=== PATIENT | male | born 1985 | race Caucasian/White ===

== ENCOUNTER 2016-06-15 20:51 | Emergency (ER) | payer OTHER ==
[2016-06-15 21:04] VITALS: TEMP 97.5
[2016-06-15] MEDS ORDERED: diphenhydrAMINE 50 MG/ML 1 ML VIAL IVP STA (21:47)
[2016-06-15] MEDS ORDERED: SODIUM CHLORIDE 0.9% 1,000 ML IV STA (21:47)
[2016-06-15] MEDS ORDERED: METOCLOPRAMIDE 5 MG/ML 2 ML VIAL IVP STA (21:47)
[2016-06-15] MEDS ORDERED: KETOROLAC 30 MG/ML 1 ML VIAL IVP STA (21:47)
--- NOTE | 2016-06-15 22:36 | ED ---
Headache HPI - General Chief Complaint: Headache Stated Complaint: Migraine Time Seen by Provider: 06/15/16 21:40 Source: RN notes reviewed Mode of arrival: ambulatory - History of Present Illness Initial Comments: 30-year-old male presents emergency Department chief complaint of migraine. Patient has a history of migraines. Patient has been experiencing these migraines about 2-3 months now. Patient seen his doctor for them and he's had an MRI. Patient states he has migraine return. Patient states typical migraine. Any other health problems. Patient states that he just cannot get the migraines only. Home. Patient has not seen a neurologist for his headaches. Patient states that like his typical headache. Patient states the throbbing and continuous. Patient states sometimes he does not need to light and nausea with them. Patient denies any recent fever, chills, shortness of breath, chest pain, back pain, abdominal pain, nausea vomiting, numbness or tingling, dysuria or hematuria, constipation or diarrhea, visual changes, or any other current symptoms. - Related Data Allergies Allergy/AdvReac Type Severity Reaction Status Date / Time No Known Allergies Allergy Verified 06/15/16 21:04 Review of Systems ROS Statement: Those systems with pertinent positive or pertinent negative responses have been documented in the HPI. ROS Other: All systems not noted in ROS Statement are negative. Past Medical History Additional Past Medical History / Comment(s): migraines History of Any Multi-Drug Resistant Organisms: None Reported Additional Past Surgical History / Comment(s): hernia x 3, left eye Past Psychological History: No Psychological Hx Reported Smoking Status: Never smoker Past Alcohol Use History: None Reported Past Drug Use History: None Reported General Exam - General Exam Comments Initial Comments: General: The patient is awake and alert, in no distress, and does not appear acutely ill. Eye: Pupils are equal, round and reactive to light, extra-ocular movements are intact; there is normal conjunctiva bilaterally. No signs of icterus. Ears, nose, mouth and throat: There are moist mucous membranes. Neck: The neck is supple, there is no tenderness. Cardiovascular: There is a regular rate and rhythm. No murmur, rub or gallop is appreciated. Respiratory: Lungs are clear to auscultation, respirations are non-labored, breath sounds are equal. No wheezes, stridor, rales, or rhonchi. Gastrointestinal: Soft, non-distended, non-tender abdomen without masses or organomegaly noted. There is no rebound or guarding present. No CVA tenderness. Bowel sounds are unremarkable. Back: There is no tenderness to palpation in the midline. There is no obvious deformity. No rashes noted. Musculoskeletal: Normal ROM, no tenderness, There is no pedal edema. There is no calf tenderness or swelling. Sensation intact. Pulses equal bilaterally 2+. Neurological: CN II-XII intact, There are no obvious motor or sensory deficits. Coordination appears grossly intact. Speech is normal. Skin: Skin is warm and dry and no rashes or lesions are noted. Psychiatric: Cooperative, appropriate mood & affect, normal judgment. Course Vital Signs 06/15/16 21:01 Temperature 97.5 F L Pulse Rate 89 Respiratory 18 Rate Blood Pressure 141/74 O2 Sat by Pulse 98 Oximetry - Reevaluation(s) Reevaluation #1: 06/15/16 22:44 At this time the patient is in the room sleeping. Patient appears to be feeling better. Medical Decision Making - Medical Decision Making 30-year-old male presents emergency Department chief complaint migraine. Patient's history of migraines that have a negative MRI. At this time is not like his normal migraine. "A headache Is Feeling Better. We Discussed Follow- Up with Neurology Is Given On-Call Neurology Information. Discussed Return Parameters. He Stated He Understood. Patient will be discharged home. Disposition Clinical Impression: Migraine Disposition: HOME SELF-CARE Condition: Stable Instructions: Acute Headache (ED) Additional Instructions: Please use medication as discussed. Please follow up with family doctor if symptoms have not improved over the next two days. Please return to the emergency room if your symptoms increase or worsen or for any other concerns. Referrals: Kehinde Encinas DO [Primary Care Provider] - 1-2 days Shandra Harman MD [STAFF PHYSICIAN] - 1-2 days Time of Disposition: 22:44
[2016-06-15 22:57] VITALS: BP 130/73; PULSE 96; RESP 16
== END 2016-06-15 22:56 | disposition home or self-care (01) ==
LOC: EC 20:51
DX: G43.909 Migraine, unspecified, not intractable, without status migrainosus (principal)
CPT/HCPCS: 99283; 96374; 96375 ×2; 96361; J1200; J2765; J1885

== ENCOUNTER → 2022-12-12 | Outpatient (CLI) | payer BC ==
--- NOTE | 2022-12-12 15:05 | P.SLEEP ---
History of Present Illness DATE: 12/12/2022 CONSULTATION/NEW PATIENT EVALUATION HISTORY OF PRESENT ILLNESS/SLEEP-WAKE EVALUATION: 37 year old gentleman had been evaluated in the sleep center for possible obstructive sleep apnea hypopnea syndrome. SLEEP SCHEDULE: Usually sleep schedule from 1112 PM until 67 AM 7 days a week. FALLING ASLEEP: No problems with falling asleep. DURING SLEEP: According to patient's he has loud snoring and witnessed episodes of stop breathing during the sleep. Patient wakes up from sleep more than 2 times with 2 episodes of nocturia. No history of hypnogogical hallucinations, sleep paralysis, or cataplexy. DURING THE DAY/WAKE STATE: In the morning patient wake up tired, falling asleep during the day, positive history of irritability.. Gaylord sleepiness scale is significantly increased to 14. Patient takes 1 nap around 2 PM. PAST MEDICAL HISTORY: Diabetes mellitus, acid reflux, sinusitis problems, hyperlipidemia. PAST SURGICAL HISTORY: Hernia repair 3, right eye surgery. MEDICATIONS: Atorvastatin 10 mg once a day, omeprazole 20 mg twice a day, metformin 500 mg twice a day, Trulicity. SOCIAL HISTORY: Negative for smoking, no alcohol consumption. FAMILY HISTORY: Heart problems, sleep apnea, diabetes. REVIEW OF SYSTEMS: Loud snoring, multiple awakenings from sleep, sleepiness duri ng the day. No fevers. No double vision. No recent chest pain. No shortness of breath. No abdominal pain. No bleeding episodes. No blood in urine. No seizure episodes. PHYSICAL EXAMINATION: GENERAL: A pleasant patient without any distress. VITAL SIGNS: BP 114/81 , HR 100 , RR 18 , weight 296.2 pounds, height 6 foot 2 inches, body mass index 38.0 . HEENT: PERRLA, EOMI. Evaluation of oropharynx showed tongue protrudes midline, low position of soft palate Mallampati 3. NECK: Supple. No JVD. Thyroid is not palpable. 21 inches in circumference. LUNGS: Clear to percussion and to auscultation. Good air exchange. No wheezing or rhonchi. HEART: S1, S2 regular. No murmurs, gallops or rubs. ABDOMEN: Soft and nontender. Bowel sounds are present. No organomegaly appreciated. EXTREMITIES: No clubbing or cyanosis. 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 Cranial nerves 2 to 7 intact. There is no fasciculation or atrophy noted. No focal deficits observed. ASSESSMENT: 1. Loud snoring, witnessed episodes of stop breathing during the sleep, multiple awakenings from sleep with nocturia, low position of soft palate Mallampati 3, wide neck 21 inches in circumference, significant excessive daytime sleepiness with Gaylord Sleepiness Scale 14. Obstructive sleep apnea hypopnea syndrome. 2. Obesity, body mass index 38.0. 3. Diabetes mellitus. 4. Hyperlipidemia. 5 acid reflux. 6 . History of sinuses problems. 7. Status post surgical treatment for hernia repair. PLAN: 1. Home sleep apnea test for evaluation of patient's breathing during sleep. 2. CPAP/BiPAP titration if sleep study confirms obstructive sleep apnea- hypopnea syndrome. 3. Preferable position during sleep on the side. 4. No driving if patient feels any sleepiness. Patient is aware of civil and criminal liability for unsafe driving. 5. Sleep hygiene with regular sleep time for at least 7.5-8 hours. 6. Watching and losing weight. Thank you very much for referring this patient for consultation. Sincerely, Ming Carrillo MD, PhD, FAASM. Diplomat of [place] [employer], Sleep Medicine Board by [place] [employer] [employer] [facility] [place] Past Medical History Past Medical History: Diabetes Mellitus, GERD/Reflux Additional Past Medical History / Comment(s): migraines History of Any Multi-Drug Resistant Organisms: None Reported Additional Past Surgical History / Comment(s): hernia x 3, left eye Past Psychological History: No Psychological Hx Reported Past Alcohol Use History: None Reported Past Drug Use History: None Reported Medications and Allergies Home Medications Medication Instructions Recorded Confirmed Type metFORMIN HCL [Glucophage] 500 mg PO BID 09/23/18 09/23/18 History Allergies Allergy/AdvReac Type Severity Reaction Status Date / Time No Known Allergies Allergy Verified 09/23/18 13:21 Sleep Note - Sleep Note Sleep Note: Temperature: Pulse Rate: Respiratory Rate: Blood Pressure: SpO2: Height: Weight: BMI: Neck Circumference:
== END ==
LOC: 3 N SLEEP 14:25
PROVIDERS: ATTEND Internal Medicine
DX: G47.33 Obstructive sleep apnea (adult) (pediatric) (principal); K21.9 Gastro-esophageal reflux disease without esophagitis; E11.9 Type 2 diabetes mellitus without complications; E66.9 Obesity, unspecified; E78.5 Hyperlipidemia, unspecified; J32.9 Chronic sinusitis, unspecified; Z68.38 Body mass index [BMI] 38.0-38.9, adult; Z99.89 Dependence on other enabling machines and devices; Z98.890 Other specified postprocedural states; Z79.84 Long term (current) use of oral hypoglycemic drugs; Z79.85 Long-term (current) use of injectable non-insulin antidiabetic drugs
CPT/HCPCS: 99211

== ENCOUNTER → 2023-05-09 | Outpatient (CLI) | payer BC ==
--- NOTE | 2023-05-09 16:09 | P.PN ---
Subjective DATE: 05/09/2023 FOLLOW UP VISIT. Patient with obstructive sleep apnea hypopnea syndrome return to sleep center for follow-up visit. Recently patient had sleep study which documented obstructive sleep apnea hypopnea syndrome. Patient was initiated on PAP therapy and today is first visit after treatment was started. Patient was able to use PAP equipment every night for the whole night. The patient does not have significant problems with the mask, PAP pressure and humidification. Ranson sleepiness scale is 6. Patient sleeps better and feels better during the day after starting using CPAP therapy. I checked information from PAP unit. PAP unit pressure maximal inspiratory pressure 17, minimal expiratory pressure 6, pressure-support 4 average pressure 11.3 /7.3 cm H2O. Usage is 90 % for more then 4 hours, average 6.5 hours per night. Leak is 7.7 l/m, which is in acceptable range. Apnea Hypopnea Index is 1.1, which is normal. MEDICATIONS:1. Atorvastatin 10 mg once a day 2. Omeprazole 20 mg twice a day 3. Metformin 500 mg twice a day 4. Trulicity During physical exam: GENERAL: A pleasant patient without any distress. VITAL SIGNS: BP 123/86, HR 95, RR 12, weight 291.8, temperature 97.6, oxygen saturation at room air 97%. HEENT: PERRLA, EOMI.low position of soft palate, Mallapati 3 . NECK: Supple. No JVD. LUNGS: Clear to percussion and to auscultation. Good air exchange. No wheezing or rhonchi. HEART: S1, S2 regular. ABDOMEN: Soft and nontender.[] EXTREMITIES: No clubbing or cyanosis. 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 No focal deficit. Impressions: 1. Obstructive sleep apnea-hypopnea syndrome. Patient demonstrated great compliance with treatment, benefiting from treatment. 2. Obesity. 3. Diabetes mellitus. 4. Acid reflux. 5. Hyperlipidemia. 6. History of sinuses problems. 7. Status post surgical treatment for hernia repair. Plan: 1. Continue using PAP equipment every night for the whole night. 2. To change air filter at least 1-2 times per month. 3. PAP unit should stay lower then position of the head. 4. Advised patient to remove all remaining water from humidifier canister daily and make it dry after each usage. Refill canister with fresh distilled water before each usage. 5. Sleep hygiene with regular time in bed for at least 8 hours. 6. Precautions related to driving. No driving if feel any sleepiness. 7. I will maintain prescription for PAP supplies including mask, tube, filters. 8. Follow up visit in 6 months or earlier if patient has any problems. 9. Watching and losing weight. Thank you very much for allowing me to participate in the management of your patient. Ming Carrillo MD, PhD, FAASM. Diplomat of [place] [employer], Sleep Medicine Board by [place] [employer] [facility] [place]
== END ==
LOC: 3 N SLEEP 15:17
PROVIDERS: ATTEND Internal Medicine
DX: G47.33 Obstructive sleep apnea (adult) (pediatric) (principal); E11.9 Type 2 diabetes mellitus without complications; E66.9 Obesity, unspecified; E78.5 Hyperlipidemia, unspecified; K21.9 Gastro-esophageal reflux disease without esophagitis; Z79.84 Long term (current) use of oral hypoglycemic drugs; Z79.85 Long-term (current) use of injectable non-insulin antidiabetic drugs; Z98.890 Other specified postprocedural states; Z86.69 Personal history of other diseases of the nervous system and sense organs; Z99.89 Dependence on other enabling machines and devices
CPT/HCPCS: 99212

== ENCOUNTER 2023-07-08 01:27 | Observation (INO) | payer BC ==
[2023-07-08] MEDS ORDERED: SODIUM CHLORIDE 0.9% 2,000 ML IV STA (02:02)
[2023-07-08] MEDS ORDERED: ACETAMINOPHEN TAB 500 MG TAB PO STA (02:32)
[2023-07-08 02:49] LABS: Chloride 107 mmol/L (98-107); Sodium 135 mmol/L (137-145)
--- NOTE | 2023-07-08 03:03 | ED ---
General Adult HPI - General Source: patient Mode of arrival: ambulatory Limitations: no limitations <Benja Kemp - Last Filed: 07/08/23 19:23> <Sarah Palacios P - Last Filed: 07/08/23 22:06> - General Chief complaint: Nausea/Vomiting/Diarrhea Stated complaint: Heart racing lightheaded, weak, diarrhea Time Seen by Provider: 07/08/23 02:01 - History of Present Illness Initial comments: 37-year-old male presenting to the ED with a chief complaint of nausea and vomiting. Patient states last night he was watching football and he was alerted that his heart was racing by his Apple Watch at around 120 bpm. Patient also noted some shortness of breath and some lightheadedness of this however patient states that he attributed this to the excitement of the football game. Shortly after, states he started to experience some nausea and vomiting. Reports that the nausea and vomiting has been continuous until today as well. Also notes that he is also having these intermittent episodes of palpitations and shortness of breath seemingly at random with no arousal. Denies chest pain with this. Denies abdominal pain. Denies changes in bowel or bladder habits. No other complaints. (Benja Kemp) - Related Data Home Medications Medication Instructions Recorded Confirmed metFORMIN HCL [Glucophage] 1,000 mg PO BID-W/MEALS 09/23/18 07/08/23 Atorvastatin [Lipitor] 10 mg PO HS 07/08/23 07/08/23 Omeprazole [PriLOSEC] 40 mg PO BID 07/08/23 07/08/23 Tirzepatide [Mounjaro] 5 mg SQ HOLLINS 07/08/23 07/08/23 Allergies Allergy/AdvReac Type Severity Reaction Status Date / Time No Known Allergies Allergy Verified 07/08/23 10:53 Review of Systems ROS Other: All systems not noted in ROS Statement are negative. <Benja Kemp - Last Filed: 07/08/23 19:23> ROS Other: All systems not noted in ROS Statement are negative. <Sarah Palacios P - Last Filed: 07/08/23 22:06> ROS Statement: Those systems with pertinent positive or pertinent negative responses have been documented in the HPI. Past Medical History Past Medical History: Diabetes Mellitus, GERD/Reflux, Sleep Apnea/CPAP/BIPAP Additional Past Medical History / Comment(s): migraines History of Any Multi-Drug Resistant Organisms: None Reported Additional Past Surgical History / Comment(s): hernia x 3, left eye Past Psychological History: No Psychological Hx Reported Smoking Status: Never smoker Past Alcohol Use History: Rare Past Drug Use History: None Reported <Benja Kemp - Last Filed: 07/08/23 19:23> General Exam Limitations: no limitations General appearance: alert, in no apparent distress ENT exam: Present: mucous membranes moist Neck exam: Present: normal inspection Respiratory exam: Present: normal lung sounds bilaterally Cardiovascular Exam: Present: regular rate, normal rhythm GI/Abdominal exam: Present: soft (No significant abdominal tenderness to palpation. No rebound guarding or rigidity.) Neurological exam: Present: alert, oriented X3 Skin exam: Present: warm, dry <Benja Kemp Last Filed: 07/08/23 19:23> Course Vital Signs 07/08/23 07/08/23 07/08/23 01:32 02:22 04:28 Temperature 99.4 F 101.6 F H Pulse Rate 144 H 124 H 125 H Pulse Rate [ Right Pulse Oximetery] Respiratory 20 18 18 Rate Blood Pressure 89/62 97/68 96/66 Blood Pressure [Right Arm Supine] O2 Sat by Pulse 100 99 97 Oximetry 07/08/23 07/08/23 07/08/23 06:38 07:43 14:00 Temperature 98.6 F Pulse Rate 114 H 109 H Pulse Rate [ 122 H Right Pulse Oximetery] Respiratory 18 18 18 Rate Blood Pressure 99/60 98/68 Blood Pressure [Right Arm Supine] O2 Sat by Pulse 99 98 Oximetry 07/08/23 07/08/23 07/08/23 15:10 16:08 17:56 Temperature 98.6 F Pulse Rate Pulse Rate [ 117 H 113 H 122 H Right Pulse Oximetery] Respiratory 17 18 Rate Blood Pressure Blood Pressure 101/60 98/54 98/69 [Right Arm Supine] O2 Sat by Pulse 96 97 Oximetry Medical Decision Making - Lab Data Result diagrams: 07/08/23 03:27 07/08/23 02:19 <Benja Kemp - Last Filed: 07/08/23 19:23> - Lab Data Result diagrams: 07/08/23 03:27 07/08/23 02:19 <Sarah Palacios P - Last Filed: 07/08/23 22:06> - Medical Decision Making Was pt. sent in by a medical professional or institution (TONNY Bergman, SHIRRING MACHINE OPERATOR, urgent care, hospital, or long term...) When possible be specific @ -No Did you speak to anyone other than the patient for history (EMS, parent, family, police, friend...)? What history was obtained from this source @ -No Did you review nursing and triage notes (agree or disagree)? Why? @ -I reviewed and agree with nursing and triage notes Were old charts reviewed (outside hosp., previous admission, EMS record, old EKG, old radiological studies, urgent care reports/EKG's, long term records)? Report findings @ -No old charts were reviewed Differential Diagnosis (chest pain, altered mental status, abdominal pain women, abdominal pain men, vaginal bleeding, weakness, fever, dyspnea, syncope, headache, dizziness, GI bleed, back pain, seizure, CVA, palpatations, mental health, musculoskeletal)? @ -Differential Fever: Pneumonia, viral URI, endocarditis, myocarditis, pericarditis, otitis, sinusitis, peritonsillar Abscess, retropharyngeal Abscess, epiglottitis, peritonitis, appendicitis, Stacey cystitis, diverticulitis, hepatitis, colitis, UTI, PID, TOA, pyelonephritis, prostatitis, epididymitis, meningitis, encephalitis, pulmonary embolism, CVA, thyroid storm, pancreatitis, adrenal crisis, cavernous sinus thrombosis, this is not meant to be an all-inclusive list. EKG interpreted by me (3pts min.). @ -As above X-rays interpreted by me (1pt min.). @ -Chest x-ray performed and at this time is pending. CT interpreted by me (1pt min.). @ -None done U/S interpreted by me (1pt. min.). @ -None done What testing was considered but not performed or refused? (CT, X-rays, U/S, labs )? Why? @ -None What meds were considered but not given or refused? Why? @ -None Did you discuss the management of the patient with other professionals (professionals i.e. TONNY Bergman, SHIRRING MACHINE OPERATOR, lab, RT, psych nurse, socially responsible investment adviser, health and physical education teacher, teacher, gifts officer, casework supervisor)? Give summary @ -No Was smoking cessation discussed for >3mins.? @ -No Was critical care preformed (if so, how long)? @ -No Were there social determinants of health that impacted care today? How? (Homelessness, low income, unemployed, alcoholism, drug addiction, transportation, low edu. Level, literacy, decrease access to med. care, detention, rehab)? @ -No Was there de-escalation of care discussed even if they declined (Discuss DNR or withdrawal of care, Hospice)? DNR status @ -No What co-morbidities impacted this encounter? (DM, HTN, Smoking, COPD, CAD, Cancer, CVA, ARF, Chemo, Hep., AIDS, mental health diagnosis, sleep apnea, morbid obesity)? @ -None Was patient admitted / discharged? Hospital course, mention meds given and route, prescriptions, significant lab abnormalities, going to OR and other pertinent info. @ -Admission 37-year-old male presenting to the ED with 2-day history of lightheadedness, palpitations, nausea, vomiting, and some intermittent shortness of breath. Laboratory studies at this time significant for a white count of 10.5 neutrophils elevated at 9.3. Chemistry panel largely unremarkable. UA shows no significant evidence of infection. Serology panel notable. Patient will be admitted secondary to gastroenteritis with septic features. Troponin at this t ashutosh unremarkable. Consult placed to cardiology in regards to sinus tachycardia. Undiagnosed new problem with uncertain prognosis? @ -No Drug Therapy requiring intensive monitoring for toxicity (Heparin, Nitro, Insulin, Cardizem)? @ -No Were any procedures done? @ -No Diagnosis/symptom? @ -Gastroenteritis, sepsis, tachycardia Acute, or Chronic, or Acute on Chronic? @ -Acute Uncomplicated (without systemic symptoms) or Complicated (systemic symptoms)? @ -Complicated Side effects of treatment? @ -No Exacerbation, Progression, or Severe Exacerbation? @ -No Poses a threat to life or bodily function? How? (Chest pain, [place], [place], pneumonia, PE, COPD, DKA, ARF, appy, cholecystitis, CVA, Diverticulitis, Homicidal, Suicidal, threat to staff... and all critical care pts) @ -Possibly, sepsis (Benja Kemp) Personally saw and evaluated this patient, after 2 L of fluids and antipyretics patient remains tachycardic and feeling lightheaded. Given the degree of tachycardia to the 170s during rest I do feel this warrants further evaluation by cardiology and patient was agreeable to plan for observation. (Sarah Palacios) - Lab Data Lab Results 07/08/23 07/08/23 07/08/23 Range/Units 02:19 02:19 02:19 WBC (3.8-10.6) k/uL RBC (4.30-5.90) m/uL Hgb (13.0-17.5) gm/dL Hct (39.0-53.0) % MCV (80.0-100.0) fL MCH (25.0-35.0) pg MCHC (31.0-37.0) g/dL RDW (11.5-15.5) % Plt Count (150-450) k/uL MPV Neutrophils % % Lymphocytes % % Monocytes % % Eosinophils % % Basophils % % Neutrophils # (1.3-7.7) k/uL Lymphocytes # (1.0-4.8) k/uL Monocytes # (0-1.0) k/uL Eosinophils # (0-0.7) k/uL Basophils # (0-0.2) k/uL PT (10.0-12.5) sec INR (<1.2) APTT (22.0-30.0) sec D-Dimer (<0.60) mg/L FEU Sodium 135 L (137-145) mmol/L Potassium 4.3 (3.5-5.1) mmol/L Chloride 107 (98-107) mmol/L Carbon Dioxide 16 L (22-30) mmol/L Anion Gap 12 mmol/L BUN 20 (9-20) mg/dL Creatinine 1.17 (0.66-1.25) mg/dL Est GFR (CKD-EPI)AfAm >90 (>60 ml/min/1.73 sqM) Est GFR (CKD-EPI)NonAf 79 (>60 ml/min/1.73 sqM) Glucose 214 H (74-99) mg/dL Calcium 9.5 (8.4-10.2) mg/dL Magnesium (1.6-2.3) mg/dL Total Bilirubin 1.5 H (0.2-1.3) mg/dL AST 32 (17-59) U/L ALT 51 H (4-49) U/L Alkaline Phosphatase 91 (38-126) U/L Troponin I (0.000-0.034) ng/mL Total Protein 7.5 (6.3-8.2) g/dL Albumin 4.8 (3.5-5.0) g/dL Amylase (30-110) U/L Lipase (23-300) U/L TSH (0.465-4.680) mIU/L Urine Color Yellow Urine Appearance Cloudy (Clear) Urine pH 5.5 (5.0-8.0) Ur Specific [place] 1.032 (1.001-1.035) Urine Protein 1+ H (Negative) Urine Glucose (UA) Trace H (Negative) Urine Ketones 1+ H (Negative) Urine Blood Negative (Negative) Urine Nitrite Negative (Negative) Urine Bilirubin Negative (Negative) Urine Urobilinogen <2.0 (<2.0) mg/dL Ur Leukocyte Esterase Negative (Negative) Urine RBC 1 (0-5) /hpf Urine WBC 6 H (0-5) /hpf Hyaline Casts 3 H (0-2) /lpf Urine Mucus Many H (None) /hpf Influenza Type A (PCR) Not Detected (Not Detectd) Influenza Type B (PCR) Not Detected (Not Detectd) RSV (PCR) Not Detected (Not Detectd) SARS-CoV-2 (PCR) Not Detected (Not Detectd) 07/08/23 07/08/23 07/08/23 Range/Units 02:36 02:36 02:36 WBC (3.8-10.6) k/uL RBC (4.30-5.90) m/uL Hgb (13.0-17.5) gm/dL Hct (39.0-53.0) % MCV (80.0-100.0) fL MCH (25.0-35.0) pg MCHC (31.0-37.0) g/dL RDW (11.5-15.5) % Plt Count (150-450) k/uL MPV Neutrophils % % Lymphocytes % % Monocytes % % Eosinophils % % Basophils % % Neutrophils # (1.3-7.7) k/uL Lymphocytes # (1.0-4.8) k/uL Monocytes # (0-1.0) k/uL Eosinophils # (0-0.7) k/uL Basophils # (0-0.2) k/uL PT 11.5 (10.0-12.5) sec INR 1.1 (<1.2) APTT 23.4 (22.0-30.0) sec D-Dimer 0.33 (<0.60) mg/L FEU Sodium (137-145) mmol/L Potassium (3.5-5.1) mmol/L Chloride (98-107) mmol/L Carbon Dioxide (22-30) mmol/L Anion Gap mmol/L BUN (9-20) mg/dL Creatinine (0.66-1.25) mg/dL Est GFR (CKD-EPI)AfAm (>60 ml/min/1.73 sqM) Est GFR (CKD-EPI)NonAf (>60 ml/min/1.73 sqM) Glucose (74-99) mg/dL Calcium (8.4-10.2) mg/dL Magnesium 1.4 L (1.6-2.3) mg/dL Total Bilirubin (0.2-1.3) mg/dL AST (17-59) U/L ALT (4-49) U/L Alkaline Phosphatase (38-126) U/L Troponin I <0.012 (0.000-0.034) ng/mL Total Protein (6.3-8.2) g/dL Albumin (3.5-5.0) g/dL Amylase 45 (30-110) U/L Lipase 96 (23-300) U/L TSH 1.900 (0.465-4.680) mIU/L Urine Color Urine Appearance (Clear) Urine pH (5.0-8.0) Ur Specific [place] (1.001-1.035) Urine Protein (Negative) Urine Glucose (UA) (Negative) Urine Ketones (Negative) Urine Blood (Negative) Urine Nitrite (Negative) Urine Bilirubin (Negative) Urine Urobilinogen (<2.0) mg/dL Ur Leukocyte Esterase (Negative) Urine RBC (0-5) /hpf Urine WBC (0-5) /hpf Hyaline Casts (0-2) /lpf Urine Mucus (None) /hpf Influenza Type A (PCR) (Not Detectd) Influenza Type B (PCR) (Not Detectd) RSV (PCR) (Not Detectd) SARS-CoV-2 (PCR) (Not Detectd) 07/08/23 Range/Units 03:27 WBC 10.5 (3.8-10.6) k/uL RBC 5.17 (4.30-5.90) m/uL Hgb 15.2 (13.0-17.5) gm/dL Hct 45.5 (39.0-53.0) % MCV 88.1 (80.0-100.0) fL MCH 29.4 (25.0-35.0) pg MCHC 33.4 (31.0-37.0) g/dL RDW 14.8 (11.5-15.5) % Plt Count 189 (150-450) k/uL MPV 8.5 Neutrophils % 89 % Lymphocytes % 6 % Monocytes % 4 % Eosinophils % 0 % Basophils % 0 % Neutrophils # 9.3 H (1.3-7.7) k/uL Lymphocytes # 0.6 L (1.0-4.8) k/uL Monocytes # 0.4 (0-1.0) k/uL Eosinophils # 0.0 (0-0.7) k/uL Basophils # 0.0 (0-0.2) k/uL PT (10.0-12.5) sec INR (<1.2) APTT (22.0-30.0) sec D-Dimer (<0.60) mg/L FEU Sodium (137-145) mmol/L Potassium (3.5-5.1) mmol/L Chloride (98-107) mmol/L Carbon Dioxide (22-30) mmol/L Anion Gap mmol/L BUN (9-20) mg/dL Creatinine (0.66-1.25) mg/dL Est GFR (CKD-EPI)AfAm (>60 ml/min/1.73 sqM) Est GFR (CKD-EPI)NonAf (>60 ml/min/1.73 sqM) Glucose (74-99) mg/dL Calcium (8.4-10.2) mg/dL Magnesium (1.6-2.3) mg/dL Total Bilirubin (0.2-1.3) mg/dL AST (17-59) U/L ALT (4-49) U/L Alkaline Phosphatase (38-126) U/L Troponin I (0.000-0.034) ng/mL Total Protein (6.3-8.2) g/dL Albumin (3.5-5.0) g/dL Amylase (30-110) U/L Lipase (23-300) U/L TSH (0.465-4.680) mIU/L Urine Color Urine Appearance (Clear) Urine pH (5.0-8.0) Ur Specific [place] (1.001-1.035) Urine Protein (Negative) Urine Glucose (UA) (Negative) Urine Ketones (Negative) Urine Blood (Negative) Urine Nitrite (Negative) Urine Bilirubin (Negative) Urine Urobilinogen (<2.0) mg/dL Ur Leukocyte Esterase (Negative) Urine RBC (0-5) /hpf Urine WBC (0-5) /hpf Hyaline Casts (0-2) /lpf Urine Mucus (None) /hpf Influenza Type A (PCR) (Not Detectd) Influenza Type B (PCR) (Not Detectd) RSV (PCR) (Not Detectd) SARS-CoV-2 (PCR) (Not Detectd) - EKG Data EKG Comments: EKG interpreted by me showing a sinus tachycardia with nonspecific ST and T wave changes at a rate of 136, CT 137, QRS 90, QT/QTc 303/383. (Benja Kemp) Disposition <Benja Kemp - Last Filed: 07/08/23 19:23> <Sarah Palacios - Last Filed: 07/08/23 22:06> Clinical Impression: Gastroenteritis, Sepsis Disposition: ADMITTED IP TO THIS HOSP
[2023-07-08 03:36] LABS: INR 1.1 (<1.2); Partial Thromboplastin Time 23.4 sec (22.0-30.0); Prothrombin Time 11.5 sec (10.0-12.5)
[2023-07-08 03:51] LABS: Amylase 45 U/L (30-110); Lipase 96 U/L (23-300); Magnesium 1.4 mg/dL (1.6-2.3)
[2023-07-08 03:53] LABS: ALT 51 U/L (4-49); AST 32 U/L (17-59); African American GFR (CKD) >90 (>60 ml/min/1.73 sqM); Albumin 4.8 g/dL (3.5-5.0); Alkaline Phosphatase 91 U/L (38-126); Anion Gap 12 mmol/L; Blood Urea Nitrogen 20 mg/dL (9-20); Calcium 9.5 mg/dL (8.4-10.2); Carbon Dioxide 16 mmol/L (22-30); Glucose 214 mg/dL (74-99); Non-African American GFR(CKD) 79 (>60 ml/min/1.73 sqM); Potassium 4.3 mmol/L (3.5-5.1); Total Bilirubin 1.5 mg/dL (0.2-1.3); Total Protein 7.5 g/dL (6.3-8.2)
[2023-07-08] MEDS: MAGNESIUM SULFATE-D5W PMX 1 GM in DEXTROSE/WATER 1 100ML.BAG IVPB SCH ×2 (05:53→07:35)
[2023-07-08 07:00] LABS: Appearance,Urine Cloudy (Clear); Bilirubin,Urine Negative (Negative); Blood,Urine Negative (Negative); Color,Urine Yellow; Glucose,Urine (UA) Trace (Negative); Hyaline Casts,Urine 3 /lpf (0-2); Ketones,Urine 1+ (Negative); Leukocyte Esterase,Urine Negative (Negative); Mucus,Urine Many /hpf; Nitrite,Urine Negative (Negative); PH, Urine 5.5 (5.0-8.0); Protein,Urine 1+ (Negative); RBC,Urine 1 /hpf (0-5); Specific Gravity,Urine 1.032 (1.001-1.035); Urobilinogen,Urine <2.0 mg/dL (<2.0); WBC,Urine 6 /hpf (0-5)
[2023-07-08 07:22] LABS: Basophils % (A) 0 %; Eosinophils % (A) 0 %; HCT 45.5 % (39.0-53.0); HGB 15.2 gm/dL (13.0-17.5); Lymphocytes # (A) 0.6 k/uL (1.0-4.8); Lymphocytes % (A) 6 %; MCH 29.4 pg (25.0-35.0); MCHC 33.4 g/dL (31.0-37.0); MCV 88.1 fL (80.0-100.0); Mean Platelet Volume 8.5; Monocytes # (A) 0.4 k/uL (0-1.0); Monocytes % (A) 4 %; Neutrophils # (A) 9.3 k/uL (1.3-7.7); Neutrophils % (A) 89 %; Platelet Count 189 k/uL (150-450); RBC 5.17 m/uL (4.30-5.90); RDW 14.8 % (11.5-15.5); WBC 10.5 k/uL (3.8-10.6)
--- NOTE | 2023-07-08 07:29 | XR ---
EXAMINATION TYPE: XR chest 2V DATE OF EXAM: 07/08/2023 COMPARISON: NONE HISTORY: Chest pain TECHNIQUE: Frontal and lateral views of the chest are obtained. FINDINGS: There is no focal air space opacity. No evidence for pneumothorax. No pleural effusion. The cardiac silhouette size is within normal limits. The osseous structures are grossly intact. IMPRESSION: 1. No acute cardiopulmonary process.
[2023-07-08] MEDS ORDERED: NALOXONE 0.4 MG/ML 1 ML VIAL IV PRN (07:51)
[2023-07-08] MEDS ORDERED: ACETAMINOPHEN TAB 325 MG TAB PO PRN (07:51)
[2023-07-08] MEDS ORDERED: SODIUM CHLORIDE 0.9% 1,000 ML IV SCH (08:00)
[2023-07-08] MEDS ORDERED: DEXTROSE 50% SYRINGE 50 ML IVP PRN ×2 (10:48)
--- NOTE | 2023-07-08 11:49 | P.CRDCN ---
History of Present Illness History of present illness: HISTORY OF PRESENT ILLNESS: This is a 37-year-old male with a past medical history significant for diabetes, GERD, hyperlipidemia, and sleep apnea. Patient does not follow with a cardiolo gist. We have been asked to see the patient in consultation for tachycardia. Patient examined at the bedside in the emergency room. Patient states about a week ago he started to feel unwell. He states that he had upper respiratory symptoms. He states those symptoms resolved. However, yesterday, the patient reports having episodes of nausea, vomiting, and diarrhea. He reports a fever. He reports feeling lightheaded as well. He states yesterday when he went to bed his Apple Watch alerted him that he was having episodes of increased heart rate up into the 160s. At the time of examination, the patient's heart rate is sinus mechanism in the 120s. DIAGNOSTICS: - EKG reveals sinus tachycardia with no signs of acute ischemia - Chest xray negative for acute process - Laboratory data: WBC 10.5. Hemoglobin 15.2. Platelet count 189. D-dimer 0.33. Sodium 135. Potassium 4.3. BUN 20. Creatinine 1.17. Magnesium 1.4. Troponin negative x 1. AST 32. ALT 51. Total bilirubin 1.5. TSH 1.90. - Current home cardiac medications include Lipitor 10 mg daily - No previous echocardiogram or cardiac catheterization available in EMR for review REVIEW OF SYSTEMS: At the time of my exam: CONSTITUTIONAL: Denies fever or chills. HEENT: Denies blurred vision, vision changes, or eye pain. Denies hemoptysis CARDIOVASCULAR: Denies chest pain. Denies orthopnea. Denies PND. Denies palpitations RESPIRATORY: Denies shortness of breath. GASTROINTESTINAL: Denies abdominal pain. Denies nausea or vomiting. HEMATOLOGIC: Denies bleeding disorders. GENITOURINARY: Denies any blood in urine. SKIN: Denies pruitis. Denies rash. PHYSICAL EXAM: VITAL SIGNS: Reviewed. GENERAL: Well-developed in no acute distress. HEENT: Head is normocephalic. Pupils are equal, round. Sclerae anicteric. Mucous membranes of the mouth are moist. Neck supple. No JVD or thyromegaly LUNGS: Respirations even and unlabored. Lungs essentially clear to auscultation bilaterally. HEART: Tachycardic. Regular rate and rhythm. S1 and S2 heard. ABDOMEN: Soft. Nondistended. Nontender. EXTREMITIES: Normal range of motion. No clubbing or cyanosis. Peripheral pulses intact. No lower extremity edema NEUROLOGIC: Awake and alert. Oriented x 3. ASSESSMENT: Nausea, vomiting, diarrhea Fever Sinus tachycardia, physiological, secondary to above Recent upper respiratory infection Diabetes Hyperlipidemia History of GERD Hypomagnesemia Mildly elevated bilirubin and ALT PLAN: Obtain 2D echo to assess cardiac structure and function Continue telemetry monitoring No need for beta-rainer therapy at this time. Anticipate improvement of sinus tachycardia with resolution of patient's acute illness Further recommendations pending patient course Nurse practitioner note has been reviewed by physician. Signing provider agrees with the documented findings, assessment, and plan of care documented by SENIOR DIRECTOR MARKETING as a scribe. Past Medical History Past Medical History: Diabetes Mellitus, GERD/Reflux, Sleep Apnea/CPAP/BIPAP Additional Past Medical History / Comment(s): migraines History of Any Multi-Drug Resistant Organisms: None Reported Additional Past Surgical History / Comment(s): hernia x 3, left eye Past Psychological History: No Psychological Hx Reported Smoking Status: Never smoker Past Alcohol Use History: Rare Past Drug Use History: None Reported Medications and Allergies Home Medications Medication Instructions Recorded Confirmed Type metFORMIN HCL [Glucophage] 1,000 mg PO BID-W/MEALS 09/23/18 07/08/23 History Atorvastatin [Lipitor] 10 mg PO HS 07/08/23 07/08/23 History Omeprazole [PriLOSEC] 40 mg PO BID 07/08/23 07/08/23 History Tirzepatide [Mounjaro] 5 mg SQ HOLLINS 07/08/23 07/08/23 History Allergies Allergy/AdvReac Type Severity Reaction Status Date / Time No Known Allergies Allergy Verified 07/08/23 10:53 Physical Exam Vitals: Vital Signs Temp Pulse Resp BP Pulse Ox 07/08/23 07:43 109 H 18 98/68 98 07/08/23 06:38 98.6 F 114 H 18 99/60 99 07/08/23 04:28 125 H 18 96/66 97 07/08/23 02:22 101.6 F H 124 H 18 97/68 99 07/08/23 01:32 99.4 F 144 H 20 89/62 100 Intake and Output 07/07/23 07/08/23 07/08/23 22:59 06:59 14:59 Other: Weight 127.006 kg Results 07/08/23 03:27 07/08/23 02:19 Cardiac Enzymes 07/08/23 07/08/23 Range/Units 02:19 02:36 AST 32 (17-59) U/L Troponin I <0.012 (0.000-0.034) ng/mL Coagulation 07/08/23 Range/Units 02:36 PT 11.5 (10.0-12.5) sec APTT 23.4 (22.0-30.0) sec CBC 07/08/23 Range/Units 03:27 WBC 10.5 (3.8-10.6) k/uL RBC 5.17 (4.30-5.90) m/uL Hgb 15.2 (13.0-17.5) gm/dL Hct 45.5 (39.0-53.0) % Plt Count 189 (150-450) k/uL Comprehensive Metabolic Panel 07/08/23 Range/Units 02:19 Sodium 135 L (137-145) mmol/L Potassium 4.3 (3.5-5.1) mmol/L Chloride 107 (98-107) mmol/L Carbon Dioxide 16 L (22-30) mmol/L BUN 20 (9-20) mg/dL Creatinine 1.17 (0.66-1.25) mg/dL Glucose 214 H (74-99) mg/dL Calcium 9.5 (8.4-10.2) mg/dL AST 32 (17-59) U/L ALT 51 H (4-49) U/L Alkaline Phosphatase 91 (38-126) U/L Total Protein 7.5 (6.3-8.2) g/dL Albumin 4.8 (3.5-5.0) g/dL Current Medications Generic Name Dose Route Start Last Admin Trade Name Freq PRN Reason Stop Dose Admin Acetaminophen 650 mg 07/08/23 07:51 Acetaminophen Tab 325 Mg Tab PO Q6HR PRN Mild Pain or Fever > 100.5 Dextrose/Water 25 ml 07/08/23 10:48 Dextrose 50% Syringe 50 Ml IVP PER PROTOCOL PRN Hypoglycemia Protocol Dextrose/Water 50 ml 07/08/23 10:48 Dextrose 50% Syringe 50 Ml IVP PER PROTOCOL PRN Hypoglycemia Protocol Enoxaparin Sodium 40 mg 07/08/23 11:00 Enoxaparin 40 Mg/0.4 Ml Syringe SQ DAILY [facility] Sodium Chloride 1,000 mls @ 130 mls/hr 07/08/23 08:00 07/08/23 08:29 Saline 0.9% IV 130 mls/hr .[id number] CEZAR Administration Ibuprofen 400 mg 07/08/23 07:51 Ibuprofen 400 Mg Tab PO Q6HR PRN Mild Pain or Fever > 100.5 Insulin Aspart 0 unit 07/08/23 12:30 Insulin Aspart (Novolog) 100 Unit/Ml Vial SQ AC-TID [facility] Protocol Naloxone HCl 0.2 mg 07/08/23 07:51 Naloxone 0.4 Mg/Ml 1 Ml Vial IV Q2M PRN Opioid Reversal Intake and Output 07/07/23 07/08/23 07/08/23 22:59 06:59 14:59 Other: Weight 127.006 kg 07/08/23 03:27 07/08/23 02:19
[2023-07-08] MEDS: ENOXAPARIN 40 MG/0.4 ML SYRINGE SQ SCH (11:54)
[2023-07-08 13:06] LABS: Glucose,Whole Blood 167 mg/dL (70-110)
[2023-07-08] MEDS ORDERED: LACTULOSE 20 GM/30 ML CUP PO PRN (13:09)
[2023-07-08] MEDS ORDERED: CALCIUM CARBONATE 500 MG CHEWABLE PO PRN (13:09)
[2023-07-08] MEDS ORDERED: ONDANSETRON 4 MG/2 ML VIAL IVP PRN (13:09)
[2023-07-08] MEDS ORDERED: TEMAZEPAM 15 MG CAP PO PRN (13:09)
[2023-07-08] MEDS ORDERED: ALPRAZolam 0.25 MG TAB PO PRN (13:09)
--- NOTE | 2023-07-08 13:32 | CA ---
Transthoracic Echo Report Name: Cristopher Scherer Age: 37 Gender: M : 1985 Exam Date: 07/08/2023 10:06 Exam Location: [place] [facility] Ht (in): 76 Wt (lb): 280 Ordering Physician: Sarah Palacios DO Attending/Referring Phys: [id number], [employer] Perry Louie RDCS Procedure CPT: Indications: arrhythmia Cardiac Hx: Technical Quality: Fair Contrast 1: Total Dose (mL): Contrast 2: Total Dose (mL): MEASUREMENTS (Male / Female) Normal Values 2D ECHO LV Diastolic Diameter PLAX 3.7 cm 4.2 - 5.9 / 3.9 - 5.3 cm LV Systolic Diameter PLAX 2.7 cm IVS Diastolic Thickness 1.1 cm 0.6 - 1.0 / 0.6 - 0.9 cm LVPW Diastolic Thickness 1.0 cm 0.6 - 1.0 / 0.6 - 0.9 cm LV Relative Wall Thickness 0.6 RV Internal Dim ED PLAX 2.6 cm LVOT Diameter 2.2 cm Aortic Root Diameter 3.1 cm LV Diastolic Volume MOD BP 55.6 cm??? 67 - 155 / 56 - 104 cm??? LV Systolic Volume MOD BP 24.6 cm??? 22 - 58 / 19 - 49 cm??? LV Ejection Fraction MOD BP 55.8 % >= 55 % LV Cardiac Index MOD BP 1359.2 cm???/min???m??? LV Diastolic Volume MOD 4C 49.0 cm??? LV Systolic Volume MOD 4C 26.2 cm??? LV Ejection Fraction MOD 4C 46.4 % LV Cardiac Index MOD 4C 996.3 cm???/min???m??? LV Diastolic Length 4C 7.7 cm LV Systolic Length 4C 6.4 cm LV Diastolic Volume MOD 2C 60.3 cm??? LV Systolic Volume MOD 2C 21.6 cm??? LV Ejection Fraction MOD 2C 64.2 % LV Cardiac Index MOD 2C 1697.9 cm???/min???m??? LV Diastolic Length 2C 7.3 cm LV Systolic Length 2C 6.0 cm LA Volume 31.3 cm??? 18 - 58 / 22 - 52 cm??? LA Volume Index 11.8 cm???/m??? 16 - 28 cm???/m??? Ascending Aorta Diameter 2.9 cm DOPPLER AV Peak Velocity 157.7 cm/s AV Peak Gradient 10.0 mmHg AV Mean Velocity 120.8 cm/s AV Mean Gradient 6.3 mmHg AV Velocity Time Integral 23.4 cm LVOT Peak Velocity 115.0 cm/s LVOT Peak Gradient 5.3 mmHg LVOT Velocity Time Integral 17.5 cm LVOT Stroke Volume 69.5 cm??? LVOT Stroke Volume Index 27.2 ml/m??? LVOT Cardiac Index 3048.4 cm???/min???m??? AV Area Cont Eq vti 3.0 cm??? AV Area Cont Eq pk 2.9 cm??? MV Peak Velocity 84.4 cm/s MV Peak Gradient 2.8 mmHg MV Mean Velocity 60.5 cm/s MV Mean Gradient 1.6 mmHg MV Velocity Time Integral 19.2 cm Mitral E Point Velocity 56.6 cm/s Mitral A Point Velocity 70.5 cm/s Mitral E to A Ratio 0.8 MV Deceleration Time 127.6 ms MV E' Velocity 11.6 cm/s Mitral E to MV E' Ratio 4.9 PV Peak Velocity 135.3 cm/s PV Peak Gradient 7.3 mmHg FINDINGS Left Ventricle Normal LV size and wall thickness. Left ventricular ejection fraction is estimated at 55-60 %. Right Ventricle Normal right ventricular size. Right Atrium Normal right atrial size. Left Atrium Normal left atrial size. Mitral Valve Structurally normal mitral valve. No mitral regurgitation. No mitral stenosis. Aortic Valve Trileaflet aortic valve. No aortic stenosis. No aortic regurgitation. Tricuspid Valve Structurally normal tricuspid valve. No tricuspid regurgitation. Pulmonic Valve Pulmonic valve not well visualized. Trace PI. Pericardium Not visualized well. Aorta Normal size aortic root and proximal ascending aorta. CONCLUSIONS Left ventricular ejection fraction is estimated at 55-60 %. No mitral regurgitation. No mitral stenosis. No aortic stenosis. No aortic regurgitation. No tricuspid regurgitation. No pericardial effusion Previewed by: Dr Mauricio Ron (Electronically Signed) Final Date: 08 July 2023 13:31
[2023-07-08] MEDS: INSULIN ASPART (NovoLOG) 100 UNIT/ML VIAL SQ SCH ×2 (13:40→18:10)
[2023-07-08] MEDS ORDERED: SODIUM CHLORIDE 0.9% 1,000 ML IV ONE (13:51)
--- NOTE | 2023-07-08 15:33 | P.HPIM ---
History of Present Illness H&P Date: 07/08/23 Chief Complaint: Heart racing This is a pleasant 37-year-old patient who follows with Dr. Encinas. Chronic stable medical conditions include diabetes, GERD, obstructive sleep apnea. Patient is accompanied by his at the bedside in the ER. Patient had eaten at [employer] around noon yesterday. In the evening is watching a game around 7 PM that he vomited once. Again vomited around 10 PM. He started having heartburn before that. Started having diarrhea . Around midnight he notices heart rate to be 1 40-1 60. Also felt dizzy lightheaded. Since this morning in the hospital patient had 2 bowel movements. Patient is very weak tired also had a fever of 101 when he had COVID. Patient's who also had ate at the same restaurant but after eating a salad also felt rather nauseated. Troponin was negative. Cardiology was consulted. Patient feeling rather tired rundown. Review of systems: GEN.: Febrile, tired, decreased appetite EYES: None HEENT: None NECK: None RESPIRATORY: None CARDIOVASCULAR: None GASTROINTESTINAL: As above GENITOURINARY: None MUSCULOSKELETAL: None LYMPHATICS: None HEMATOLOGICAL: None PSYCHIATRY: None NEUROLOGICAL: None Social history: Works at [employer] from home. No smoking or alcohol. . Physical examination: VITAL SIGNS: 101.6, 124, 18, 97 x 68, 99% room air GENERAL: BMI 34.1, laying in bed tired. EYES: Pupils equal. Conjunctiva be l. HEENT: External appearance of nose and ears normal, oral cavity grossly-dry mucous membrane. NECK: JVD not raised; masses not palpable. HEART: First and second heart sounds are normal; no edema. LUNGS: Respiratory rate normal; clear to auscultation. ABDOMEN: Soft, nontender, liver spleen not palpable, no masses palpable. PSYCH: [Alert and oriented x3; mood and affect tired. MUSCULOSKELETAL:No Clubbing/cyanosis;muscles-grossly intact NEUROLOGICAL: Cranial nerves grossly intact; no facial asymmetry, power and sensation grossly intact. LYMPHATICS: No lymph nodes palpable in the axilla and neck INVESTIGATIONS, reviewed in the clinical context: July 08: White count 10.5 hemoglobin 15.2 platelets 189 left shift sodium 135 potassium 4.3 BUN 20 creatinine 1.17 Magnesium 1.4 total bilirubin 1.5 Troponin I less than 0.012 amylase 45 lipase 96 TSH 1.9 Influenza type A, type B, RSV, COVID-19: Not detected EKG tracing personally reviewed by me-normal sinus rhythm. Nonspecific T wave changes. Chest x-ray film personally reviewed by me-unremarkable Assessment plan: -Acute food poisoning/gastroenteritis with sepsis picture. Patient eaten out of the restaurant yesterday the also ate there. also had nausea. Will start the patient on ciprofloxacin 5 mg twice daily and Flagyl 5 mg 4 times daily. Full liquid diet. IV fluids. -Sinus tachycardia from volume loss. Nonspecific T wave changes. Consult cardiology -GERD PPI -Hypotension from volume loss Lactated Ringer's, 150 cc an hour -Diabetes mellitus type 2,On oral hypoglycemic Mounjaro. Hold metformin. Accu-Cheks with sliding scale insulin. -Hyperlipidemia Lipitor -Obesity BMI 34.1 Weight loss measures -Obstructive sleep apnea Continue CPAP Care was discussed with the patient and at the bedside. Questions answered. Past Medical History Past Medical History: Diabetes Mellitus, GERD/Reflux, Sleep Apnea/CPAP/BIPAP Additional Past Medical History / Comment(s): migraines History of Any Multi-Drug Resistant Organisms: None Reported Additional Past Surgical History / Comment(s): hernia x 3, left eye Past Psychological History: No Psychological Hx Reported Smoking Status: Never smoker Past Alcohol Use History: Rare Past Drug Use History: None Reported Medications and Allergies Home Medications Medication Instructions Recorded Confirmed Type metFORMIN HCL [Glucophage] 1,000 mg PO BID-W/MEALS 09/23/18 07/08/23 History Atorvastatin [Lipitor] 10 mg PO HS 07/08/23 07/08/23 History Omeprazole [PriLOSEC] 40 mg PO BID 07/08/23 07/08/23 History Tirzepatide [Mounjaro] 5 mg SQ HOLLINS 07/08/23 07/08/23 History Allergies Allergy/AdvReac Type Severity Reaction Status Date / Time No Known Allergies Allergy Verified 07/08/23 10:53 Physical Exam Vitals: Vital Signs Temp Pulse Resp BP Pulse Ox 07/08/23 07:43 109 H 18 98/68 98 07/08/23 06:38 98.6 F 114 H 18 99/60 99 07/08/23 04:28 125 H 18 96/66 97 07/08/23 02:22 101.6 F H 124 H 18 97/68 99 07/08/23 01:32 99.4 F 144 H 20 89/62 100 Intake and Output 07/07/23 07/08/23 07/08/23 22:59 06:59 14:59 Other: Weight 127.006 kg Results CBC & Chem 7: 07/08/23 03:27 07/08/23 02:19 Labs: Abnormal Lab Results - Last 24 Hours (Table) 07/08/23 07/08/23 07/08/23 Range/Units 02:19 02:19 02:36 Neutrophils # (1.3-7.7) k/uL Lymphocytes # (1.0-4.8) k/uL Sodium 135 L (137-145) mmol/L Carbon Dioxide 16 L (22-30) mmol/L Glucose 214 H (74-99) mg/dL Magnesium 1.4 L (1.6-2.3) mg/dL Total Bilirubin 1.5 H (0.2-1.3) mg/dL ALT 51 H (4-49) U/L Urine Protein 1+ H (Negative) Urine Glucose (UA) Trace H (Negative) Urine Ketones 1+ H (Negative) Urine WBC 6 H (0-5) /hpf Hyaline Casts 3 H (0-2) /lpf Urine Mucus Many H (None) /hpf 07/08/23 Range/Units 03:27 Neutrophils # 9.3 H (1.3-7.7) k/uL Lymphocytes # 0.6 L (1.0-4.8) k/uL Sodium (137-145) mmol/L Carbon Dioxide (22-30) mmol/L Glucose (74-99) mg/dL Magnesium (1.6-2.3) mg/dL Total Bilirubin (0.2-1.3) mg/dL ALT (4-49) U/L Urine Protein (Negative) Urine Glucose (UA) (Negative) Urine Ketones (Negative) Urine WBC (0-5) /hpf Hyaline Casts (0-2) /lpf Urine Mucus (None) /hpf
[2023-07-08] MEDS: metroNIDAZOLE 500 MG TAB PO SCH ×3 (15:58→21:11)
[2023-07-08] MEDS: CIPROFLOXACIN HCL 500 MG TAB PO SCH ×2 (15:58→21:11)
[2023-07-08 17:59] LABS: Glucose,Whole Blood 155 mg/dL (70-110)
[2023-07-08] MEDS ORDERED: LOPERAMIDE 2 MG CAP PO PRN (18:08)
[2023-07-08] MEDS: MAGNESIUM OXIDE 400 MG TAB PO SCH (18:27)
[2023-07-08] MEDS: LACTATED RINGERS 1,000 ML IV SCH ×2 (18:27→21:16)
[2023-07-08 20:28] LABS: Glucose,Whole Blood 166 mg/dL (70-110)
[2023-07-08] MEDS: ATORVASTATIN 10 MG TAB PO SCH (21:11)
[2023-07-09] MEDS: LACTATED RINGERS 1,000 ML IV SCH ×3 (04:11→16:38)
[2023-07-09 06:12] LABS: Glucose,Whole Blood 148 mg/dL (70-110)
[2023-07-09] MEDS: INSULIN ASPART (NovoLOG) 100 UNIT/ML VIAL SQ SCH ×4 (06:17→17:29)
[2023-07-09] MEDS: IBUPROFEN 400 MG TAB PO PRN ×2 (08:00→20:13)
[2023-07-09] MEDS: MAGNESIUM OXIDE 400 MG TAB PO SCH (08:01)
[2023-07-09] MEDS: ENOXAPARIN 40 MG/0.4 ML SYRINGE SQ SCH (08:02)
[2023-07-09] MEDS: CIPROFLOXACIN HCL 500 MG TAB PO SCH ×2 (08:02→20:11)
[2023-07-09] MEDS: metroNIDAZOLE 500 MG TAB PO SCH ×4 (08:02→20:11)
--- NOTE | 2023-07-09 10:56 | P.PN ---
Subjective HISTORY OF PRESENT ILLNESS: This is a 37-year-old male with a past medical history significant for diabetes, GERD, hyperlipidemia, and sleep apnea. 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 We have been asked to see the patient in consultation for tachycardia. Patient examined at the bedside in the emergency room. Patient states about a week ago he started to feel unwell. He states that he had upper respiratory symptoms. He states those symptoms resolved. However, yesterday, the patient reports having episodes of nausea, vomiting, and diarrhea. He reports a fever. He reports feeling lightheaded as well. He states yesterday when he went to bed his [employer] Watch alerted him that he was having episodes of increased heart rate up into the 160s. At the time of examination, the patient's heart rate is sinus mechanism in the 120s. DIAGNOSTICS: - EKG reveals sinus tachycardia with no signs of acute ischemia - Chest xray negative for acute process - Laboratory data: WBC 10.5. Hemoglobin 15.2. Platelet count 189. D-dimer 0.33. Sodium 135. Potassium 4.3. BUN 20. Creatinine 1.17. Magnesium 1.4. Troponin negative x 1. AST 32. ALT 51. Total bilirubin 1.5. TSH 1.90. - Current home cardiac medications include Lipitor 10 mg daily - No previous echocardiogram or cardiac catheterization available in EMR for review July 09, 2023 Patient examined this morning at the bedside. Patient currently denies any chest pain or pressure. He denies any shortness of breath. He reports improvement in his nausea, vomiting, and diarrhea. Telemetry reveals sinus mechanism with a heart rate between [id number]. Echocardiogram completed revealing ejection fraction 55 to 60% with no significant valvular dysfunction noted. PHYSICAL EXAM: VITAL SIGNS: Reviewed. GENERAL: Well-developed in no acute distress. HEENT: Head is normocephalic. Pupils are equal, round. Sclerae anicteric. Mucous membranes of the mouth are moist. Neck supple. No JVD or thyromegaly LUNGS: Respirations even and unlabored. Lungs essentially clear to auscultation bilaterally. HEART: Regular rate and rhythm. S1 and S2 heard. ABDOMEN: Soft. Nondistended. Nontender. EXTREMITIES: Normal range of motion. No clubbing or cyanosis. Peripheral pulses intact. No lower extremity edema NEUROLOGIC: Awake and alert. Oriented x 3. ASSESSMENT: Nausea, vomiting, diarrhea, possible viral gastroenteritis versus food poisoning Fever Sinus tachycardia, physiological, secondary to above Recent upper respiratory infection Diabetes Hyperlipidemia History of GERD Hypomagnesemia Mildly elevated bilirubin and ALT PLAN: 2D echo obtained and reviewed Patient is currently stable from a cardiac standpoint with no further inpatient recommendations We will sign off. Please reconsult if needed. Nurse practitioner note has been reviewed by physician. Signing provider agrees with the documented findings, assessment, and plan of care documented by BRIDGE INSTRUCTOR as a scribe. Objective - Vital Signs Vital signs: Vital Signs Temp 98.4 F 07/09/23 07:00 Pulse 105 H 07/09/23 07:00 Resp 16 07/09/23 08:02 BP 99/64 07/09/23 07:00 Pulse Ox 95 07/09/23 07:00 FiO2 Intake & Output 07/08/23 07/09/23 07/09/23 18:59 06:59 18:59 Intake Total 1480 Balance 1480 Weight 127.006 kg Intake: Intake, IV Titration 1000 Amount Sodium Chloride 0.9% 1, 1000 000 ml @ 999 mls/hr IV . Q1H1M ONE Rx#:[id number] Oral 480 Other: Voiding Method Toilet Toilet Toilet # Voids 2 1 - Labs CBC & Chem 7: 07/08/23 03:27 07/08/23 02:19 Labs: Abnormal Lab Results - Last 24 Hours (Table) 07/08/23 07/08/23 07/08/23 Range/Units 13:05 17:57 20:26 POC Glucose (mg/dL) 167 H 155 H 166 H (70-110) mg/dL 07/09/23 Range/Units 06:10 POC Glucose (mg/dL) 148 H (70-110) mg/dL
--- NOTE | 2023-07-09 11:01 | P.PN ---
Progress Note - Text Progress Note Date: 07/09/23 Chief Complaint: Heart racing This is a pleasant 37-year-old patient who follows with Dr. Encinas. Chronic stable medical conditions include diabetes, GERD, obstructive sleep apnea. Patient is accompanied by his at the bedside in the ER. Patient had eaten at [employer] around noon yesterday. In the evening is watching a game around 7 PM that he vomited once. Again vomited around 10 PM. He started having heartburn before that. Started having aisha rrhea. Around midnight he notices heart rate to be 1 40-1 60. Also felt dizzy lightheaded. Since this morning in the hospital patient had 2 bowel movements. Patient is very weak tired also had a fever of 101 when he had COVID. Patient's who also had ate at the same restaurant but after eating a salad also felt rather nauseated. Troponin was negative. Cardiology was consulted. Patient feeling rather tired rundown. July 09: Patient feeling better this morning. No diarrhea. Did tolerate a full liquid diet. Does feel a bit tired. Blood pressure still running on the lower side in the 90s systolic. Slightly tachycardic. Discussed with patient will give another IV fluids for another 24 hours. Advance to soft bland diet this evening. Continue with Cipro and Flagyl. Active Medications Acetaminophen (Acetaminophen Tab 325 Mg Tab) 650 mg PO Q6HR PRN PRN Reason: Mild Pain or Fever > 100.5 Alprazolam (Alprazolam 0.25 Mg Tab) 0.25 mg PO Q6HR PRN PRN Reason: Anxiety Atorvastatin Calcium (Atorvastatin 10 Mg Tab) 10 mg PO [facility] Last Admin: 07/08/23 21:11 Dose: 10 mg Calcium Carbonate/Glycine (Calcium Carbonate 500 Mg Chewable) 1,000 mg PO Q4HR PRN PRN Reason: Dyspepsia Ciprofloxacin (Ciprofloxacin Hcl 500 Mg Tab) 500 mg PO BID [facility]; Protocol Last Admin: 07/09/23 08:02 Dose: 500 mg Dextrose/Water (Dextrose 50% Syringe 50 Ml) 25 ml IVP PER PROTOCOL PRN; Protocol PRN Reason: Hypoglycemia Dextrose/Water (Dextrose 50% Syringe 50 Ml) 50 ml IVP PER PROTOCOL PRN; Protocol PRN Reason: Hypoglycemia Enoxaparin Sodium (Enoxaparin 40 Mg/0.4 Ml Syringe) 40 mg SQ DAILY [facility] Last Admin: 07/09/23 08:02 Dose: 40 mg Lactated Ringer's (Lactated Ringers) 1,000 mls @ 125 mls/hr IV .Q8H [facility] Last Admin: 07/09/23 10:24 Dose: 150 mls/hr Ibuprofen (Ibuprofen 400 Mg Tab) 400 mg PO Q6HR PRN PRN Reason: Mild Pain or Fever > 100.5 Last Admin: 07/09/23 08:00 Dose: 400 mg Insulin Aspart (Insulin Aspart (Novolog) 100 Unit/Ml Vial) 0 unit SQ AC-TID [facility]; Protocol Last Admin: 07/09/23 06:17 Dose: Not Given Lactulose (Lactulose 20 Gm/30 Ml Cup) 20 gm PO DAILY PRN PRN Reason: Constipation Loperamide HCl (Loperamide 2 Mg Cap) 2 mg PO TID PRN PRN Reason: Diarrhea Last Admin: 07/08/23 18:27 Dose: 2 mg Magnesium Oxide (Magnesium Oxide 400 Mg Tab) 400 mg PO DAILY [facility] Last Admin: 07/09/23 08:01 Dose: 400 mg Metronidazole (Metronidazole 500 Mg Tab) 500 mg PO QID [facility]; Protocol Last Admin: 07/09/23 08:02 Dose: 500 mg Naloxone HCl (Naloxone 0.4 Mg/Ml 1 Ml Vial) 0.2 mg IV Q2M PRN PRN Reason: Opioid Reversal Ondansetron HCl (Ondansetron 4 Mg/2 Ml Vial) 4 mg IVP Q8HR PRN PRN Reason: Nausea And Vomiting Temazepam (Temazepam 15 Mg Cap) 15 mg PO HS PRN PRN Reason: Insomnia Social history: Works at [employer] from home. No smoking or alcohol. . Physical examination: VITAL SIGNS: 98.4, 105, 16, 99/64, 95% room air GENERAL: Propped up in bed, less tired EYES: Pupils equal. Conjunctiva be l. HEENT: External appearance of nose and ears normal, oral cavity grossly-dry mucous membrane. NECK: JVD not raised; masses not palpable. HEART: First and second heart sounds are normal; no edema. LUNGS: Respiratory rate normal; clear to auscultation. ABDOMEN: Soft, nontender, liver spleen not palpable, no masses palpable. PSYCH: [Alert and oriented x3; mood and affect tired. MUSCULOSKELETAL:No Clubbing/cyanosis;muscles-grossly intact INVESTIGATIONS, reviewed in the clinical context: July 08: White count 10.5 hemoglobin 15.2 platelets 189 left shift sodium 135 potassium 4.3 BUN 20 creatinine 1.17 Magnesium 1.4 total bilirubin 1.5 Troponin I less than 0.012 amylase 45 lipase 96 TSH 1.9 Influenza type A, type B, RSV, COVID-19: Not detected EKG tracing personally reviewed by me-normal sinus rhythm. Nonspecific T wave changes. Chest x-ray film personally reviewed by me-unremarkable Assessment plan: -Acute food poisoning/gastroenteritis with sepsis picture. Patient eaten out of the restaurant yesterday the also ate there. also had nausea.: Improving ciprofloxacin 500 mg twice daily and Flagyl 5 mg 4 times daily. Full liquid diet. IV fluids. -Sinus tachycardia from volume loss. Nonspecific T wave changes.: [place] to be from severe dehydration Seen by cardiology. -GERD PPI -Hypotension from volume loss Lactated Ringer's, 125 cc an hour -Diabetes mellitus type 2,On oral hypoglycemic Mounjaro. Resume metformin. Accu-Cheks with sliding scale insulin. -Hyperlipidemia Lipitor -Obesity BMI 34.1 Weight loss measures -Obstructive sleep apnea Continue CPAP Continue IV fluids. Increase activity. Advance diet later today. Hopefully home tomorrow. Past Medical History Past Medical History: Diabetes Mellitus, GERD/Reflux, Sleep Apnea/CPAP/BIPAP Additional Past Medical History / Comment(s): migraines History of Any Multi-Drug Resistant Organisms: None Reported Additional Past Surgical History / Comment(s): hernia x 3, left eye Past Psychological History: No Psychological Hx Reported Smoking Status: Never smoker Past Alcohol Use History: Rare Past Drug Use History: None Reported
[2023-07-09 12:29] LABS: Glucose,Whole Blood 172 mg/dL (70-110)
[2023-07-09] MEDS: metFORMIN 500 MG TAB PO SCH ×2 (12:54→17:28)
[2023-07-09 17:08] LABS: Glucose,Whole Blood 124 mg/dL (70-110)
[2023-07-09 19:26] VITALS: RESP 15
[2023-07-09] MEDS: ATORVASTATIN 10 MG TAB PO SCH (20:11)
[2023-07-09 20:26] LABS: Glucose,Whole Blood 151 mg/dL (70-110)
[2023-07-10] MEDS: LACTATED RINGERS 1,000 ML IV SCH ×2 (00:18→08:50)
[2023-07-10 06:23] LABS: Glucose,Whole Blood 104 mg/dL (70-110)
[2023-07-10] MEDS: INSULIN ASPART (NovoLOG) 100 UNIT/ML VIAL SQ SCH (06:34)
[2023-07-10 07:02] LABS: African American GFR (CKD) >90 (>60 ml/min/1.73 sqM); Anion Gap 5 mmol/L; Blood Urea Nitrogen 8 mg/dL (9-20); Calcium 8.3 mg/dL (8.4-10.2); Carbon Dioxide 24 mmol/L (22-30); Chloride 109 mmol/L (98-107); Glucose 110 mg/dL (74-99); Non-African American GFR(CKD) >90 (>60 ml/min/1.73 sqM); Potassium 3.7 mmol/L (3.5-5.1); Sodium 138 mmol/L (137-145)
[2023-07-10] MEDS: metroNIDAZOLE 500 MG TAB PO SCH (08:51)
[2023-07-10] MEDS: MAGNESIUM OXIDE 400 MG TAB PO SCH (08:51)
[2023-07-10] MEDS: CIPROFLOXACIN HCL 500 MG TAB PO SCH (08:51)
[2023-07-10] MEDS: ENOXAPARIN 40 MG/0.4 ML SYRINGE SQ SCH (08:51)
[2023-07-10] MEDS: metFORMIN 500 MG TAB PO SCH (08:52)
[2023-07-10 09:32] VITALS: BP 104/72; PULSE 82; TEMP 97.4
--- NOTE | 2023-07-10 19:36 | P.DS ---
Providers Date of admission: 07/08/23 07:51 Expected date of discharge: 07/10/23 Attending physician: Jarrod Ricketts Primary care [facility] Course: Chief Complaint: Heart racing This is a pleasant 37-year-old patient who follows with Dr. Encinas. Chronic stable medical conditions include diabetes, GERD, obstructive sleep apnea. Patient is accompanied by his at the bedside in the ER. Patient had eaten at [employer] around noon yesterday. In the evening is watching a game around 7 PM that he vomited once. Again vomited around 10 PM. He started having heartburn before that. Started having diarrhea. Around midnight he notices heart rate to be 1 40-1 60. Also felt dizzy lightheaded. Since this morning in the hospital patient had 2 bowel movements. Patient is very weak tired also had a fever of 101 when he had COVID. Patient's who also had ate at the same restaurant but after eating a salad also felt rather nauseated. Troponin was negative. Cardiology was consulted. Patient feeling rather tired rundown. July 09: Patient feeling better this morning. No diarrhea. Did tolerate a full liquid diet. Does feel a bit tired. Blood pressure still running on the lower side in the 90s systolic. Slightly tachycardic. Discussed with patient will give another IV fluids for another 24 hours. Advance to soft bland diet this evening. Continue with Cipro and Flagyl. July 10: Doing well. Tolerated diet. No GI symptoms. Will discharge patient with 1 more day of Cipro and Flagyl. Soft diet. Social history: Works at [employer] from home. No smoking or alcohol. . Physical examination: VITAL SIGNS: r 97.4, 82, 15, 104/72, 97% room air GENERAL: Sitting up, comfortable EYES: Pupils equal. Conjunctiva be l. HEENT: External appearance of nose and ears normal, oral cavity grossly-dry mucous membrane. NECK: JVD not raised; masses not palpable. HEART: First and second heart sounds are normal; no edema. LUNGS: Respiratory rate normal; clear to auscultation. ABDOMEN: Soft, nontender, liver spleen not palpable, no masses palpable. PSYCH: [Alert and oriented x3; mood and affect tired. MUSCULOSKELETAL:No Clubbing/cyanosis;muscles-grossly intact INVESTIGATIONS, reviewed in the clinical context: July 10: Potassium 3.7 creatinine 0.64 July 08: White count 10.5 hemoglobin 15.2 platelets 189 left shift sodium 135 potassium 4.3 BUN 20 creatinine 1.17 Magnesium 1.4 total bilirubin 1.5 Troponin I less than 0.012 amylase 45 lipase 96 TSH 1.9 Influenza type A, type B, RSV, COVID-19: Not detected EKG tracing personally reviewed by me-normal sinus rhythm. Nonspecific T wave changes. Chest x-ray film personally reviewed by me-unremarkable Assessment plan: -Acute food poisoning/gastroenteritis with sepsis picture. Patient eaten out of the restaurant yesterday the also ate there. also had nausea.: Resolved ciprofloxacin 500 mg twice daily and Flagyl 500 mg 4 times daily. Give 1 more day of Cipro and Flagyl. Soft bland diet. -Sinus tachycardia from volume loss. Nonspecific T wave changes.: [place] to be from severe dehydration Seen by cardiology. -GERD PPI -Hypotension from volume loss Lactated Ringer's, 125 cc an hour -Diabetes mellitus type 2,On oral hypoglycemic Mounjaro. Resume metformin. Accu-Cheks with sliding scale insulin. -Hyperlipidemia Lipitor -Obesity BMI 34.1 Weight loss measures -Obstructive sleep apnea Continue CPAP Disposition: Home Past Medical History Past Medical History: Diabetes Mellitus, GERD/Reflux, Sleep Apnea/CPAP/BIPAP Additional Past Medical History / Comment(s): migraines History of Any Multi-Drug Resistant Organisms: None Reported Additional Past Surgical History / Comment(s): hernia x 3, left eye Past Psychological History: No Psychological Hx Reported Smoking Status: Never smoker Past Alcohol Use History: Rare Past Drug Use History: None Reported Plan - Discharge Summary Discharge Rx Participant: No New Discharge Prescriptions: New Ciprofloxacin HCl [Cipro] 500 mg PO BID #2 tab metroNIDAZOLE [Flagyl] 500 mg PO QID #4 tab Continue metFORMIN HCL [Glucophage] 1,000 mg PO BID-W/MEALS Omeprazole [PriLOSEC] 40 mg PO BID Tirzepatide [Mounjaro] 5 mg SQ HOLLINS Atorvastatin [Lipitor] 10 mg PO HS Discharge Medication List metFORMIN HCL [Glucophage] 1,000 mg PO BID-W/MEALS 09/23/18 [History] Atorvastatin [Lipitor] 10 mg PO HS 07/08/23 [History] Omeprazole [PriLOSEC] 40 mg PO BID 07/08/23 [History] Tirzepatide [Mounjaro] 5 mg SQ HOLLINS 07/08/23 [History] Ciprofloxacin HCl [Cipro] 500 mg PO BID #2 tab 07/10/23 [Rx] metroNIDAZOLE [Flagyl] 500 mg PO QID #4 tab 07/10/23 [Rx] Follow up Appointment(s)/Referral(s): Kehinde Encinas DO [Primary Care Provider] - 1-2 days Patient Instructions/Handouts: Gastroenteritis (DC) Discharge Disposition: HOME SELF-CARE
== END 2023-07-10 12:06 | disposition home or self-care (01) ==
LOC: EC 01:27 → 6NMEDSUR 07:51
PROVIDERS: ADMIT Hospitalist; ATTEND Hospitalist
DX: K52.9 Noninfective gastroenteritis and colitis, unspecified (principal); E11.9 Type 2 diabetes mellitus without complications; K21.9 Gastro-esophageal reflux disease without esophagitis; G47.33 Obstructive sleep apnea (adult) (pediatric); I95.9 Hypotension, unspecified; E86.0 Dehydration; E83.42 Hypomagnesemia; E78.5 Hyperlipidemia, unspecified; Z68.34 Body mass index [BMI] 34.0-34.9, adult; Z20.822 Contact with and (suspected) exposure to COVID-19; Z79.899 Other long term (current) drug therapy; Z79.84 Long term (current) use of oral hypoglycemic drugs
CPT/HCPCS: 96361; 96365; 96372; 99285; 36415; 93005; 93306; 85379; 80053; 80048; 84443; 82150; 83605; 83690; 83735; 84484; 85025; 85610; 85730; 81001; 87636; 71046; G0378 ×3; J1650 ×3; J3475

== ENCOUNTER → 2023-12-19 | Outpatient (CLI) | payer BC ==
[2023-12-19 16:39] VITALS: BP 107/73; PULSE 97; RESP 18; TEMP 97.7
--- NOTE | 2023-12-19 17:39 | P.PROGSL ---
Subjective DATE: 12/19/2023 FOLLOW UP VISIT. Patient with obstructive sleep apnea hypopnea syndrome return to sleep center for follow-up visit. Information from previous visit have been reviewed. Patient is using PAP equipment every night for the whole night, getting PAP supplies in time. The patient does not have significant problems with the mask, PAP unit and humidification. [place] sleepiness scale is slightly increased to 10. I checked information from PAP unit. PAP unit pressure maximal inspiratory pressure 17, minimal expiratory pressure 6, pressure support 4, average 11 over 7 cm of water cm H2O. Usage is 90% for more then 4 hours, average 5.2 hours per night. Leak is 2 l/m, which is in acceptable range. Apnea Hypopnea Index is 1.5, which is normal. MEDICATIONS: Please see below During physical exam: GENERAL: A pleasant patient without any distress. VITAL SIGNS: Please see below, weight 275.8 pounds. HEENT: PERRLA, EOMI.low position of soft palate, Mallapati 3 . NECK: Supple. No JVD. LUNGS: Clear to percussion and to auscultation. Good air exchange. No wheezing or rhonchi. HEART: S1, S2 regular. ABDOMEN: Soft and nontender. Obese EXTREMITIES: No clubbing or cyanosis. 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 No focal deficit. Impressions: 1. Obstructive sleep apnea-hypopnea syndrome. Patient demonstrated great com pliance with treatment, benefiting from treatment. 2. Obesity, BMI 35.3. 3. Diabetes mellitus. 4. Acid reflux. 5. Hyperlipidemia. 6. History of sinuses problems. 7. Status post surgical treatment for hernia repair. Plan: 1. Continue using PAP equipment every night for the whole night. 2. To change air filter at least 1-2 times per month. 3. PAP unit should stay lower then position of the head. 4. Advised patient to remove all remaining water from humidifier canister daily and make it dry after each usage. Refill canister with fresh distilled water before each usage. 5. Sleep hygiene with regular time in bed for at least 8 hours. 6. Precautions related to driving. No driving if feel any sleepiness. 7. I will maintain prescription for PAP supplies including mask, tube, filters. 8. Watching and losing weight. 9. Follow up visit in 6 months or earlier if patient has any problems. Thank you very much for allowing me to participate in the management of your patient. Ming Carrillo MD, PhD, FAASM. Diplomat of [place] [employer], Sleep Medicine Board by [place] [employer] Paralegal Legal Secretary of [facility] [place] Objective - Vital Signs Vital Signs: Vital Signs Temp 97.7 F 12/19/23 16:38 Pulse 97 12/19/23 16:38 Resp 18 12/19/23 16:38 BP 107/73 12/19/23 16:38 Pulse Ox 96 12/19/23 16:38 FiO2 Intake & Output 12/18/23 12/19/23 12/19/23 18:59 06:59 18:59 Weight 124.965 kg Home Medications: Home Medications Medication Instructions Recorded Confirmed Type metFORMIN HCL [Glucophage] 500 mg PO BID-W/MEALS 09/23/18 12/19/23 History Atorvastatin [Lipitor] 10 mg PO HS 07/08/23 12/19/23 History Omeprazole [PriLOSEC] 20 mg PO BID 07/08/23 12/19/23 History Tirzepatide [Mounjaro] 7.5 mg SQ HOLLINS 07/08/23 12/19/23 History Ciprofloxacin HCl [Cipro] 500 mg PO BID #2 tab 07/10/23 Rx metroNIDAZOLE [Flagyl] 500 mg PO QID #4 tab 07/10/23 Rx
== END ==
LOC: 3 N SLEEP 16:18
PROVIDERS: ATTEND Internal Medicine
DX: G47.33 Obstructive sleep apnea (adult) (pediatric) (principal); E66.9 Obesity, unspecified; E11.9 Type 2 diabetes mellitus without complications; K21.9 Gastro-esophageal reflux disease without esophagitis; E78.5 Hyperlipidemia, unspecified; Z99.89 Dependence on other enabling machines and devices; Z98.890 Other specified postprocedural states; Z90.49 Acquired absence of other specified parts of digestive tract; Z87.09 Personal history of other diseases of the respiratory system; Z68.35 Body mass index [BMI] 35.0-35.9, adult; Z79.84 Long term (current) use of oral hypoglycemic drugs; Z79.85 Long-term (current) use of injectable non-insulin antidiabetic drugs
CPT/HCPCS: 99212

== ENCOUNTER → 2024-02-27 | Outpatient (CLI) | payer BC ==
--- NOTE | 2024-02-27 08:23 | US ---
EXAMINATION TYPE: US liver DATE OF EXAM: 02/27/2024 COMPARISON: NONE CLINICAL INDICATION: Male, 38 years old with history of R94.5 ABNORMAL RESULTS OF LIVER FUNCTION STUD IES; Pt states abnormal labs TECHNIQUE: Multiple sonographic images of the right upper quadrant are obtained. FINDINGS: EXAM MEASUREMENTS: Liver Length: 23.6 cm Gallbladder Wall: 0.2 cm CBD: 0.5 cm Right Kidney: 12.5 x 5.0 x 4.9 cm DIRECTOR CLINICAL APPLICATIONS NOTES: Pancreas: wnl, tail obscured by overlying bowel gas Liver: Enlarged, heterogeneous, difficult to penetrate Gallbladder: wnl Evidence for sonographic Cuello's sign: No CBD: wnl Right Kidney: wnl IMPRESSION: * No evidence for acute process. * Hepatic steatosis. [facility], , 02/27/2024 8:21 AM
== END | disposition home or self-care (01) ==
LOC: RADUSWWP 06:57
PROVIDERS: ATTEND Family Medicine
DX: R94.5 Abnormal results of liver function studies
CPT/HCPCS: 76705